=== PATIENT | male | born 2000 | race Two or more races ===

== ENCOUNTER → 2024-06-19 | Outpatient (CLI) | payer BC, SELFPAY ==
--- NOTE | 2024-06-19 16:46 | XR_ITS ---
Examination: Ultrasound soft tissue right face Technique: Sonographic images soft tissue right face Exam date and time: June 19, 2024 1658 hrs. Indications: Palpable lump right face 15 years Findings: Soft tissue mass in the right cheek area at the area concern below the right ear 3.0 x 2.3 x 3.3 cm, vascular Impression: Soft tissue mass at the area concern, differential would include soft tissue tumor Recommend CT soft tissue neck post intravenous contrast follow-up
== END | disposition home or self-care (01) ==
PROVIDERS: PCP Nurse Practitioner Family; Referring Provider Nurse Practitioner Family; Visit Provider Nurse Practitioner Family
DX: R22.0 Localized swelling, mass and lump, head (principal)
CPT/HCPCS: 76536

== ENCOUNTER → 2024-07-03 | Outpatient (CLI) | payer BC, SELFPAY ==
--- NOTE | 2024-07-03 15:30 | XR_ITS ---
Examination: CT soft tissue neck, with intravenous contrast. 2-D coronal reconstructions. 2-D sagittal reconstructions. Date and time of exam :July 03, 2024 1648 hrs. Indications: Palpable lump adjacent to the right ear beginning 6 years ago. CTDI: vol (mGy):12.6 DLP: (mGycm):392 Technique: 1.25 mm axial sections of the neck of the obtained. Coronal and sagittal reconstructions have been obtained. Intravenous contrast administered 50 cc Isovue-370. Low dose protocols were performed. One or more of the following dose reduction techniques were used; automated exposure control, adjustment of the mA and/or KV according to patient size, use of iterative reconstruction technique. Findings: Symmetrical optic globes Maxillary antra are clear Symmetrical nasopharynx oropharynx 36 x 22 mm soft tissue mass within the right parotid gland Smaller carotid triangle lymph nodes Symmetrical submandibular lymph nodes Thyroid lobes are not enlarged Normal epiglottis Impression: 36 x 22 mm soft tissue mass within the right parotid gland, differential would include primary and metastatic parotid gland tumor, hydrocephalus disease, non-Hodgkin's lymphoma This mass is amenable to CT-guided percutaneous biopsy for diagnosis
== END | disposition home or self-care (01) ==
PROVIDERS: PCP Family Medicine; Referring Provider Nurse Practitioner Family; Visit Provider Nurse Practitioner Family
DX: R22.0 Localized swelling, mass and lump, head (principal)
CPT/HCPCS: 70491; A4649; Q9967